=== PATIENT | female | born 1940 | race Caucasian/White ===

== ENCOUNTER 2021-01-18 05:10 | Emergency (ER) | payer MEDICARE, BC ==
[~2021-01-18] VITALS: Ht 160 cm; Wt 80.3 kg
[~2021-01-18 05:10] MED LIST: ASPIR 8181 MG PO; FISH OIL 1,001000 M2 PO; GLUCOSAMINE &1 EACH PO; I-CAPS AREDS S1 EACH PO; PRINZIDE 20-251 EACH PO
[2021-01-18] MEDS ORDERED: LISINOPRIL20 MG (05:33)
[2021-01-18] MEDS ORDERED: NORVASC 2.5 MG2.5 M1 (05:34)
[2021-01-18 05:37] LABS: ABSOLUTE EOSINOPHILS 0.2 thou/uL (0.0-0.7); ABSOLUTE LYMPHOCYTES 1.1 thou/uL (0.8-5.3); ABSOLUTE MONOCYTES 0.3 thou/uL (0.0-1.2); BASOPHILS 0.9 %; EOSINOPHILS 4.6 %; HEMATOCRIT 40.8 % (37.0-47.0); HEMOGLOBIN 13.1 gm/dL (12.0-15.0); LYMPHOCYTES 30.8 %; MCH 27.3 pg (26.0-34.0); MCHC 32.2 g/dL (28.0-37.0); MCV 84.8 fL (80.0-100.0); MPV 7.3 fl. (7.2-11.1); NUCLEATED RBCS 0 /100WBC; PLATELET COUNT* 224 thou/uL (150-400); POLYS 54.7 %; RBC 4.81 mil/uL (4.20-5.00); RDW-CV 14.8 % (10.5-14.5); WBC 3.7 thou/uL (4.0-11.0)
[2021-01-18 05:40] LABS: URINE BILIRUBIN NEGATIVE (Negative); URINE BLOOD NEGATIVE (Negative); URINE CLARITY CLEAR; URINE COLOR YELLOW; URINE GLUCOSE-RANDOM NEGATIVE (Negative); URINE KETONES NEGATIVE (Negative); URINE LEUKOCYTES-REFLEX TRACE (Negative); URINE NITRITE-REFLEX NEGATIVE (Negative); URINE PROTEIN NEGATIVE (Negative); URINE SPECIFIC GRAVITY 1.015 (1.005-1.030); URINE UROBILINOGEN 0.2 E.U./dl (0.2-1.0)
[2021-01-18 05:59] LABS: CALCIUM 9.2 mg/dL (8.5-10.1); CREATININE 0.7 mg/dL (0.6-1.3); POTASSIUM 3.6 mmol/L (3.5-5.1)
[2021-01-18 06:04] LABS: ALBUMIN 3.7 g/dL (3.4-5.0); TOTAL BILIRUBIN 0.3 mg/dL (<0.1-1.0); TOTAL PROTEIN 7.4 g/dL (6.4-8.2)
[2021-01-18 06:13] LABS: SQUAMOUS 0-3 Few /LPF (0-3); URINE RBC 0-2 Rare /HPF (0-2)
[2021-01-18 06:14] LABS: BACTERIA-REFLEX None Seen /HPF (None Seen); CASTS None Seen /LPF (None Seen); CRYSTALS None Seen /LPF (None Seen); URINE WBC-REFLEX 0-5 Rare /HPF (0-5)
[2021-01-18 07:49] VITALS: BP 125/67
--- NOTE | 2021-01-18 12:21 | EKG ---
[place] [address] ELECTROCARDIOGRAM REPORT Name: TIFFANY LERMA Room: [facility]#: [id number] Admission: 01/18/21 Attend Phys: Discharge: 01/18/21 Date of : 44 Date of Service: 01/18/21521 Report #: [id number] THIS REPORT FOR: //name// [facility] ED Test Date: 2021-01-18 Test Time: 05:22:12 Pat Name: TIFFANY LERMA Department: Room: Gender: F [employer]ative [employer]pper: : 1940 Requested By: Akiko Veronica Order Number: [id number] MD: Sarath Dave Measurements Intervals [place] Rate: 99 P: 64 [place]: 135 QRS: 9 QRSD: 87 T: 34 QT: 344 QTc: 442 Interpretive Statements Sinus rhythm Anterior infarct, old Minimal ST depression, lateral leads No previous ECG available for comparison Electronically Signed On 01-18-2021 12:21:34 NEUROPHYSIOLOGICAL TECHNICIAN by Sarath Dave [email or web address] <ELECTRONICALLY SIGNED> By: Sarath Dave MD, [facility] 01/18/21 1221 1 1 Sarath Dave MD, [facility] /EPI
--- NOTE | 2021-01-19 11:10 | EKG ---
[place] [address] ELECTROCARDIOGRAM REPORT Name: TIFFANY LERMA Room: [facility]#: [id number] Admission: 01/18/21 Attend Phys: Discharge: 01/18/21 Date of : 44 Date of Service: 01/18/21711 Report #: [id number] THIS REPORT FOR: //name// [facility] ED Test Date: 2021-01-18 Test Time: 07:12:37 Pat Name: TIFFANY LERMA Department: Room: Gender: F Establishment Guide: RENEE : 1940 Requested By: Akiko Veronica Order Number: [id number] MD: Clayton Doss Measurements Intervals [place] Rate: 69 P: 33 [place]: 127 QRS: -4 QRSD: 87 T: 38 QT: 434 QTc: 465 Interpretive Statements Sinus rhythm Probable left atrial enlargement Anterior infarct, old Compared to ECG 01/18/2021 05:22:12 ST (T wave) deviation no longer present Myocardial infarct finding still present Electronically Signed On 01-19-2021 11:09:52 ASSEMBLY MEMBER by Clayton Doss [email or web address] <ELECTRONICALLY SIGNED> By: Clayton Doss MD, [facility] 01/19/21 1109 1 1 Clayton Doss MD, [facility] /EPI
== END 2021-01-18 07:49 | disposition home or self-care (01) ==
LOC: M.ERS 05:10
PROVIDERS: Emergency Medicine
DX: R07.89 Other chest pain (principal); Z88.0 Allergy status to penicillin